=== PATIENT | male | born 1995 | race Two or more races ===

== ENCOUNTER 2022-07-25 23:52 | Emergency (ER) | payer OTHER ==
[~2022-07-25] VITALS: Ht 182.9 cm; Wt 100.0 kg
[2022-07-26 00:08] VITALS: BP 142/82
== END 2022-07-26 02:10 ==
LOC: EDBD 23:52 → ER 07-26 00:01
DX: F10.129 Alcohol abuse with intoxication, unspecified (principal); R45.1 Restlessness and agitation; Y90.9 Presence of alcohol in blood, level not specified